=== PATIENT | female | born 1965 | race Caucasian/White ===

== ENCOUNTER 2022-03-06 13:32 | Emergency (ER) | payer OTHER, SELFPAY ==
[2022-03-06 13:58] VITALS: BP 185/99; PULSE 98; RESP 16; TEMP 36.8; O2SAT 99
--- NOTE | 2022-03-06 14:27 | ED.FEMALEGU ---
HPI - Female Genitourinary General Chief complaint: Urogenital-Female Stated complaint: Vaginal Problems Time Seen by Provider: 03/06/22 14:27 Source: patient and RN notes reviewed Mode of arrival: ambulatory Limitations: no limitations History of Present Illness HPI Narrative: 56-year-old female presents to the [facility] with complaints of irritation and vaginal discharge for approximately 2 weeks. Has been intermittent. Has recently had unprotected sex with a new partner Does not have a primary nor a [employer] provider. Related Data Allergies Allergy/AdvReac Type Severity Reaction Status Date / Time cyclobenzaprine Allergy Hives Verified 03/06/22 14:38 methotrexate Allergy Other Verified 03/06/22 14:38 minocycline Allergy Hives Verified 03/06/22 14:38 Review of Systems Review of Systems: All systems reviewed & are unremarkable except as noted in HPI and below Constitutional: Constitutional: Reports no additional constitutional complaints, Denies chills and Denies fever(s) Eyes: Eyes: Reports no additional eye complaints ENT: Reports system reviewed and no additional complaints, except as documented Cardiovascular: Cardiovascular: Reports no additional cardiovascular complaints Respiratory: Respiratory: Reports no additional respiratory complaints Gastrointestinal: Gastrointestinal: Reports no additional gastrointestinal complaints Genitourinary: Genitourinary: Reports as per HPI and Reports vaginal discharge Musculoskeletal: Musculoskeletal: Reports no additional musculoskeletal complaints Integumentary/Breasts: Skin/Breast: Reports system reviewed and no additional complaints, except as docu Neurologic: Reports system reviewed and no additional complaints, except as documented Psychiatric: Psychiatric: Reports no additional psychiatric complaints Allergic/Immunologic: Allergic/Immunologic: Reports no additional allergic/immunologic complaints PMFSH Past Medical History Medical History (Updated 03/06/22 @ 20:21 by Socorro Lemons APRN) Patient denies medical problems Social History Social History (Updated 03/06/22 @ 20:21 by Socorro Lemons APRN) Gender identity (if verbalized by the patient): Female Comments At the time of my signature, I reviewed and agree with the nursing past medical, surgical, social, and family history. There is no relevant family history pertinent to the patient complaint. Exam Const: General: healthy appearing, no acute distress, alert and well nourished Nutritional Appearance: well nourished Orientation/consciousness: patient oriented x3 Limitations: no limitations HENMT: Head: normal to inspection Ears: external ears normal Face/Nose/Sinus: Normal external nose present Eyes: General: appearance normal, both eyes and all related structures Pupils: Equal, round and reactive pupils present Neck: Neck: normal visual inspection, no lymphadenopathy and no meningeal signs Chest: Chest palpation & inspection: normal inspection of the chest Resp: Effort & Inspection: normal respiratory effort and no use of accessory muscles Auscultation: clear to auscultation bilaterally, no crackles, no rales, no rhonchi and no wheezes Cardio: Rate: regular rate Rhythm: regular rhythm GI: GI Palp: Yes Soft to palpation and No Tenderness to palpation present (GI) : External Female Exam: normal external appearance Speculum Exam - Vagina: abnormal vaginal discharge white and malodorous, no foreign bodies and No vaginal bleeding Speculum Exam - Cervix: normal appearance of the cervix Other: Chaperoned by Jamee DAVILA Back/Spine/Pelvis: Cervical Spine: normal cervical lordosis Thoracic/Lumbar Spine: thoracic and lumbar spine normal to inspection Skin: General skin exam: normal color Rashes: no rashes Wounds: no wounds Neuro: General: patient oriented x3, moves all extremities, no meningeal signs and no focal motor deficits Cranial nerves: Yes Equal, round and reactive pupils present
[2022-03-06] MEDS: cefTRIAXone 500 MG, LIDOCAINE HCL 1% LOCAL INJ 1 ML IM (15:03)
== END 2022-03-06 15:13 | disposition home or self-care (01) ==
PROVIDERS: Emergency Provider Nurse Practitioner
DX: N76.0 Acute vaginitis (principal); Z20.2 Contact with and (suspected) exposure to infections with a predominantly sexual mode of transmission; I10 Essential (primary) hypertension; M19.90 Unspecified osteoarthritis, unspecified site
CPT/HCPCS: 87070; 87491; 87591; 87661; 96372; 99214; G0463; J0696

== ENCOUNTER 2022-06-20 03:13 | Emergency (ER) | payer OTHER, SELFPAY ==
--- NOTE | ~2022-06-20 | XR_ITS ---
Portable chest x-ray Comparison: None Clinical History: Cough Findings: Questionable minimal interstitial prominence peripherally in the right upper lobe and at t he left lower lobe. No focal consolidation or pleural effusion. Cardiomediastinal silhouette is unre markable. Bones and soft tissues are unremarkable. Impression: Questionable minimal interstitial prominence right upper lobe and left lower lobe. Correlate for inte rstitial disease or possibly atypical infection. Reviewed, dictated and finalized at location [facility]. [facility] Impression: Questionable minimal interstitial prominence right upper lobe and left lower lo be. Correlate for interstitial disease or possibly atypical infection.
[2022-06-20 03:17] VITALS: BP 154/94; PULSE 100; RESP 18; TEMP 36.8; O2SAT 95
--- NOTE | 2022-06-20 03:41 | ED.GENADULT ---
HPI - General Adult General Chief complaint: Upper Respiratory Infection Stated complaint: upper resp Time Seen by Provider: 06/20/22 03:32 History of Present Illness HPI narrative: Patient is a 56-year-old female who presents the emergency department with chief complaint of cough and loss of voice. The patient states that for more than 2 weeks has been coughing and having nasal drainage patient states that in the last couple of days she lost her voice denies really of sore throat states that she has been coughing and it kept her up throughout the night and was unable to sleep so that made her come to the emergency department today. The patient reports he had a low-grade temperature at 99 patient reports that she feels that this is probably not strep because it feels different than whenever she had strep in the past. Related Data Allergies Allergy/AdvReac Type Severity Reaction Status Date / Time cyclobenzaprine Allergy Hives Verified 06/20/22 03:42 methotrexate Allergy Other Verified 06/20/22 03:42 minocycline Allergy Hives Verified 06/20/22 03:42 Review of Systems Review of Systems: A 10 system review of systems was completed on the patient and is negative except for what is stated in the HPI. Nursing and ancillary documentation was reviewed. PMFSH Past Medical History Medical History Patient denies medical problems Social History Social History Gender identity (if verbalized by the patient): Female Exam Narrative: GENERAL: Well-appearing, well-nourished, and in no acute distress. HEAD: Normocephalic, atraumatic. EYES: PERRLA and EOMI. ENT: Nares clear, no rhinorrhea or epistaxis. Mucous membranes moist. NECK: Supple. CHEST: Clear to auscultation. No respiratory distress. HEART: Regular rate and rhythm. No murmur heard. Normal peripheral pulses. ABDOMEN: Soft, nontender, nondistended, normal active bowel sounds. EXTREMITIES: Normal range of motion. No edema. SKIN: Warm, dry, no rash. NEURO: No focal deficits. Alert and oriented x3. PSYCH: Normal mood and affect. Course Vital Signs Vital signs: Vital Signs Temperature 36.8 C 06/20/22 03:17 Pulse Rate 100 06/20/22 03:17 Respiratory Rate 18 06/20/22 03:17 Blood Pressure 154/94 H 06/20/22 03:17 Pulse Oximetry 95 06/20/22 03:17 Oxygen Delivery Room Air 06/20/22 03:17 Temperature 36.8 C 06/20/22 03:17 Pulse Rate 100 06/20/22 03:17 Respiratory Rate 18 06/20/22 03:17 Blood Pressure 154/94 H 06/20/22 03:17 Pulse Oximetry 95 06/20/22 03:17 Oxygen Delivery Room Air 06/20/22 03:40 Medical Decision Making MDM Narrative Medical decision making narrative: Chest x-ray interpreted by me showed no evidence of focal infiltrate. Patient was given Tessalon in the emergency department for her cough. Given the patient's symptoms have been going longer than 2 weeks the patient was tested for flu COVID and strep but the plan will be to treat the patient as though she has a bacterial bronchitis that she would be high risk due to smoking and also the duration of the symptoms. COVID and flu were negative Vital Signs Vital Signs: Vital Signs Temperature 36.8 C 06/20/22 03:17 Pulse Rate 100 06/20/22 03:17 Respiratory Rate 18 06/20/22 03:17 Blood Pressure 154/94 H 06/20/22 03:17 Pulse Oximetry 95 06/20/22 03:17 Oxygen Delivery Room Air 06/20/22 03:17 Temperature 36.8 C 06/20/22 03:17 Pulse Rate 100 06/20/22 03:17 Respiratory Rate 18 06/20/22 03:17 Blood Pressure 154/94 H 06/20/22 03:17 Pulse Oximetry 95 06/20/22 03:17 Oxygen Delivery Room Air 06/20/22 03:40 Lab Data Labs: Lab Results 06/20/22 Range/Units 03:48 Influenza A (RT-PCR) Negative (Negative) Influenza B (RT-PCR) Negative (Negative) SARS-CoV-2 RNA (RT-PCR) Negative
[2022-06-20] MEDS: BENZONATATE 100 MG CAPSULE 200 MG PO (03:46)
[2022-06-20 04:47] LABS: Influenza A QL RT-PCR Negative (Negative); Influenza B QL RT-PCR Negative (Negative); SARS-CoV-2 RNA PCR Negative
== END 2022-06-20 04:50 | disposition home or self-care (01) ==
PROVIDERS: Emergency Provider Emergency Medicine; PCP Family Medicine
DX: J20.9 Acute bronchitis, unspecified (principal); F17.200 Nicotine dependence, unspecified, uncomplicated; Z20.822 Contact with and (suspected) exposure to COVID-19
CPT/HCPCS: 71045; 87636; 99283; A9270

== ENCOUNTER 2023-02-28 09:33 | Emergency (ER) | payer SELFPAY ==
[2023-02-28 09:45] VITALS: BP 141/91; PULSE 112; RESP 18; TEMP 36.7; O2SAT 100
--- NOTE | 2023-02-28 09:53 | ED.URI ---
HPI - URI/Sore Throat General Chief Complaint: Upper Respiratory Infection Stated Complaint: Fever/Cough Time Seen by Provider: 02/28/23 10:04 Source: patient and RN notes reviewed Mode of arrival: ambulatory Limitations: no limitations History of Present Illness HPI Narrative: 49-year-old female presents concern for runny nose, watery eyes, postnasal drip, chest congestion, cough which she reports have been going on for several months. She reports she has also began having mucousy diarrhea with abdominal bloating. She reports low-grade temperature up to 100. She denies abdominal pain, vomiting, nausea. She denies facial pain or pressure. She reports she took Robitussin DM prior to arrival which increased her heart rate. MD elicited complaint: rhinorrhea, nasal congestion and other (Diarrhea) Related Data Allergies Allergy/AdvReac Type Severity Reaction Status Date / Time cyclobenzaprine Allergy Hives Verified 02/28/23 09:54 methotrexate Allergy Other Verified 02/28/23 09:54 minocycline Allergy Hives Verified 02/28/23 09:54 Review of Systems Review of Systems: CONSTITUTIONAL: Denies malaise, chills, sweats. Reports low-grade fever. EYES: Denies visual changes, redness, or discharge. ENT: Reports rhinorrhea, congestion, postnasal drainage. Denies sinus pain, otalgia and sore throat. CARDIOVASCULAR: Denies chest pain, palpitations, or edema. RESPIRATORY: Reports cough and chest congestion. Denies dyspnea. GASTROINTESTINAL: Denies abdominal pain, nausea, vomiting. Reports mucousy diarrhea SKIN: Denies rash or itching. MUSCULOSKELETAL: Denies myalgia. NEUROLOGIC: Denies headache. All systems reviewed & are unremarkable except as noted in HPI and below PMFSH Past Medical History Medical History Patient denies medical problems Social History Social History Gender identity (if verbalized by the patient): Female Comments At time of signature, agree with nursing past medical, surgical, social and family history. There is no relevant family history pertinent to the presenting complaint Exam Narrative: GENERAL: Well-appearing, well-nourished, and in no acute distress. HEAD: Normocephalic EYES: PERRLA, conjunctivae clear ENT: Nares clear, turbinates edematous and erythematous. Mucous membranes moist. TM pearly mchugh with dull light reflex bilaterally; no tragal tenderness. Oropharynx not erythematous without lesions. Tonsils not enlarged and without exudate, no drooling, no hoarseness, no trismus, uvula midline. NECK: Supple. No lymphadenopathy CHEST: Clear to auscultation, breath sounds equal. No wheezing, rhonchi, rales, or stridor. No respiratory distress, speaks in full sentences. HEART: Regular rate and rhythm. No murmur heard. SKIN: Warm, dry, no rash. NEURO: Alert and oriented x3. PSYCH: Normal mood and affect Course Course Emergency Course: Patient is aware of diagnosis, understands and agrees to treatment plan. Anticipatory guidance given. Patient agrees to follow-up as directed and is aware of reasons to seek care at the emergency department. Portions of this record may have been created with voice recognition software Level of Care: Express Care Visit Vital Signs Vital signs: Vital Signs Temperature 98.1 F 02/28/23 09:45 Pulse Rate 112 H 02/28/23 09:45 Respiratory Rate 18 02/28/23 09:45 Blood Pressure 141/91 H 02/28/23 09:45 Pulse Oximetry 100 02/28/23 09:45 Oxygen Delivery Room Air 02/28/23 09:45 Temperature 98.1 F 02/28/23 09:45 Pulse Rate 112 H 02/28/23 09:45 Respiratory Rate 18 02/28/23 09:45 Blood Pressure 141/91 H 02/28/23 09:45 Pulse Oximetry 100 02/28/23 09:45 Oxygen Delivery Room Air 02/28/23 09:45 Reviewed. MDM - URI/Sore Throat MDM Narrative Medical decision making narrative: Differential diagnosis considered: Cor
== END 2023-02-28 10:15 | disposition home or self-care (01) ==
PROVIDERS: Emergency Provider Nurse Practitioner
DX: J32.9 Chronic sinusitis, unspecified (principal); R19.7 Diarrhea, unspecified
CPT/HCPCS: 99213; G0463